=== PATIENT | female | born 1985 | race Caucasian/White ===

== ENCOUNTER 2017-06-14 06:23 | Inpatient (IN) | payer OTHER ==
[~2017-06-14] VITALS: Ht 172.7 cm; Wt 101.6 kg
[2017-06-14] VITALS (17 sets, daily range): BP systolic 118–150; BP diastolic 63–94
[2017-06-14] MEDS ORDERED: PRENATAL TABLE1 EAC3 PO (07:04)
[2017-06-14] MEDS ORDERED: CALICUM 500+D1 EACH PO (07:04)
[2017-06-14] MEDS ORDERED: OMEGA 3-6-9 11200 MG PO (07:05)
[2017-06-14 08:20] LABS: BASOPHIL (%) 0.5 % (0-1); EOSINOPHIL (%) 1.7 % (0-5); EOSINOPHIL COUNT 0.1 K/uL (0-0.3); HEMATOCRIT 34.6 % (36.0-46.0); IMMATURE GRANULOCYTE (%) 0.3 % (0.0-0.7); LYMPHOCYTE (%) 20.5 % (15-42); LYMPHOCYTE COUNT 1.6 K/uL (1.0-2.8); MCH 31.5 PG (29.0-34.0); MCHC 34.7 G/DL (30.0-36.0); MCV 90.8 FL (83-99); MONOCYTE (%) 9.4 % (3-12); MONOCYTE COUNT 0.7 K/uL (0-0.8); NEUTROPHIL (%) 67.6 % (45-76); NEUTROPHIL COUNT 5.3 K/uL (1.8-6.4); PLATELET COUNT 163 K/uL (156-360); RBC DIS.WIDTH-CV 12.3 % (11.8-14.6); RBC DIS.WIDTH-SD 40.7 % (39-53); RED BLOOD COUNT 3.81 M/uL (3.80-5.20); WHITE BLOOD COUNT 7.8 K/uL (4.1-10.2)
[2017-06-15] VITALS (27 sets, daily range): BP systolic 109–160; BP diastolic 64–98
[2017-06-16] VITALS (27 sets, daily range): BP systolic 122–148; BP diastolic 73–90
[2017-06-17] MEDS ORDERED: DOCUSATE SODIU100 MG PO (00:51)
[2017-06-17] MEDS ORDERED: ENDOCET 5-3251 EACH PO (00:52)
[2017-06-17] MEDS ORDERED: IBUPROFEN800 MG PO (00:52)
[2017-06-17 02:25] VITALS: BP 135/82
[2017-06-17 06:49] LABS: BASOPHIL (%) 0.2 % (0-1); EOSINOPHIL (%) 0 % (0-5); HEMATOCRIT 34.5 % (36.0-46.0); HEMOGLOBIN 12.2 G/DL (11.9-15.5); IMMATURE GRANULOCYTE (%) 0.8 % (0.0-0.7); LYMPHOCYTE (%) 4.6 % (15-42); LYMPHOCYTE COUNT 0.9 K/uL (1.0-2.8); MCHC 35.4 G/DL (30.0-36.0); MCV 90.6 FL (83-99); MONOCYTE (%) 4.3 % (3-12); MONOCYTE COUNT 0.9 K/uL (0-0.8); NEUTROPHIL (%) 90.1 % (45-76); NEUTROPHIL COUNT 18.3 K/uL (1.8-6.4); PLATELET COUNT 134 K/uL (156-360); RBC DIS.WIDTH-CV 12.2 % (11.8-14.6); RBC DIS.WIDTH-SD 40.3 % (39-53); RED BLOOD COUNT 3.81 M/uL (3.80-5.20); WHITE BLOOD COUNT 20.3 K/uL (4.1-10.2)
[2017-06-18 09:56] LABS: BASOPHIL (%) 0.2 % (0-1); EOSINOPHIL (%) 1.3 % (0-5); EOSINOPHIL COUNT 0.1 K/uL (0-0.3); HEMATOCRIT 30.4 % (36.0-46.0); IMMATURE GRANULOCYTE (%) 0.5 % (0.0-0.7); LYMPHOCYTE (%) 11.3 % (15-42); LYMPHOCYTE COUNT 1.2 K/uL (1.0-2.8); MCH 30.9 PG (29.0-34.0); MCHC 33.2 G/DL (30.0-36.0); MONOCYTE (%) 6.8 % (3-12); MONOCYTE COUNT 0.7 K/uL (0-0.8); NEUTROPHIL (%) 79.9 % (45-76); NEUTROPHIL COUNT 8.7 K/uL (1.8-6.4); PLATELET COUNT 129 K/uL (156-360); RBC DIS.WIDTH-CV 12.4 % (11.8-14.6); RBC DIS.WIDTH-SD 43.1 % (39-53); RED BLOOD COUNT 3.27 M/uL (3.80-5.20); WHITE BLOOD COUNT 10.9 K/uL (4.1-10.2)
[2017-06-18 09:57] LABS: HEMOGLOBIN 10.1 G/DL (11.9-15.5)
== END 2017-06-19 10:39 | disposition home or self-care (01) | DRG 765 ==
LOC: LDRP-OP 06:23 → 2WEST 06:24 → LDRP-OP 10:21 → 2WEST 06-16 23:45 → LDRP-OP 07-16 13:54
PROVIDERS: Obstetrics & Gynecology
PROC: 0U7C7ZZ Dilation of Cervix, Via Natural or Artificial Opening (ICD-10-PCS; principal; 2017-06-14)
PROC: 3E0P7VZ Introduction of Hormone into Female Reproductive, Via Natural or Artificial Opening (ICD-10-PCS; principal; 2017-06-14)
PROC: 3E033VJ Introduction of Other Hormone into Peripheral Vein, Percutaneous Approach (ICD-10-PCS; principal; 2017-06-14)
PROC: 10907ZC Drainage of Amniotic Fluid, Therapeutic from Products of Conception, Via Natural or Artificial Opening (ICD-10-PCS; 2017-06-15)
PROC: 10D00Z1 Extraction of Products of Conception, Low, Open Approach (ICD-10-PCS; 2017-06-16)
PROC: 00HU33Z Insertion of Infusion Device into Spinal Canal, Percutaneous Approach (ICD-10-PCS; 2017-06-16)
PROC: 3E0R3BZ Introduction of Anesthetic Agent into Spinal Canal, Percutaneous Approach (ICD-10-PCS; 2017-06-16)
DX: O62.0 Primary inadequate contractions (principal); O63.0 Prolonged first stage (of labor); O69.81X0 Labor and delivery complicated by cord around neck, without compression, not applicable or unspecified; O36.5930 Maternal care for other known or suspected poor fetal growth, third trimester, not applicable or unspecified; O13.4 Gestational [pregnancy-induced] hypertension without significant proteinuria, complicating childbirth; Z3A.39 39 weeks gestation of pregnancy; Z37.0 Single live birth
CPT/HCPCS: 85025; 86850; 86900; 86901; C1755; G0378; J0595; J0690; J1100; J2175; J2210; J2274; J2405; J2590; J3010; J7120

== ENCOUNTER → 2017-07-06 | Outpatient (CLI) | payer OTHER ==
[~2017-07-06] MED LIST: CALICUM 500+D1 EACH PO; DOCUSATE SODIU100 MG PO; ENDOCET 5-3251 EACH PO; IBUPROFEN800 MG PO; OMEGA 3-6-9 11200 MG PO; PRENATAL TABLE1 EAC3 PO
== END | disposition home or self-care (01) ==
LOC: LAC 10:02
DX: Z39.1 Encounter for care and examination of lactating mother (principal); O92.4 Hypogalactia
CPT/HCPCS: G0463